=== PATIENT | female | born 1990 | race Caucasian/White ===

== ENCOUNTER 2021-07-25 13:35 | Emergency (ER) | payer OTHER, MEDICAID, SELFPAY ==
--- NOTE | ~2021-07-25 | MR_ITS ---
EXAMINATION: MR lumbar spine wo con DATE: 07/26/2021 08:33 INDICATION: Low back pain. Sagittal and a seizure. TECHNIQUE: Magnetic resonance imaging (MRI) of the lumbar spine was performed without intravenous con trast. Sequences included sagittal T2-weighted FSE, sagittal T2-weighted FS FSE, sagittal T1-weighted FSE, and axial T2-weighted FSE. COMPARISON: None FINDINGS: Minimal thoracolumbar dextrocurvature. Sagittal alignment is normal. Vertebral body heights are pedro l. Normal marrow signal. Moderate disc height loss at L4-L5. Mild to moderate disc height loss at L5 -S1 and mild disc height loss at L3-L4. The conus medullaris terminates at T12. There is normal signa l in the caudal spinal cord. Paravertebral soft tissues are unremarkable. The following disc levels a re specifically discussed: T12-L1: The disc does not extend beyond the endplate margin. There is mild right facet joint osteoart hritis. There is no neural foraminal stenosis. There is no central canal stenosis. L1-L2: The disc does not extend beyond the endplate margin. There is no facet joint osteoarthritis. T here is no neural foraminal stenosis. There is no central canal stenosis. L2-L3: The disc does not extend beyond the endplate margin. There is mild bilateral facet joint osteo arthritis. There is no neural foraminal stenosis. There is no central canal stenosis. L3-L4: Disc is mildly bulging with superimposed annular fissure and central disc extrusion with disc material extending up to 1.3 similar caudal to the level of the superior endplate of L4. There is mil d bilateral facet joint osteoarthritis. There is mild bilateral neural foraminal stenosis. There is s evere central canal stenosis. L4-L5: Disc is mildly bulging with superimposed annular fissure and smaller central disc extrusion. T here is mild right and minimal left facet joint osteoarthritis. There is mild bilateral neural forami nal stenosis. There is severe central canal stenosis. L5-S1: Small central disc protrusion. There is mild bilateral facet joint osteoarthritis. There is mi ld left neural foraminal stenosis. There is minimal central canal stenosis with mild narrowing of the lateral recesses, left greater than right. IMPRESSION: 1. Moderate lumbar spondylosis most notable for disc extrusions resulting in severe central canal bertin nosis at both L3-L4 and L4-L5. Reviewed, dictated and finalized at location A. [employer] IMPRESSION: 1. Moderate lumbar spondylosis most notable for disc extrusions resulting in se obey central canal stenosis at both L3-L4 and L4-L5.
[2021-07-25 13:39] VITALS: BP 149/99; PULSE 110; RESP 18; TEMP 36.8; O2SAT 100
[2021-07-25 16:04] VITALS: BP 151/106; PULSE 104; RESP 20; TEMP 36.8; O2SAT 100
[2021-07-25 16:59] LABS: Basophils Absolute Auto 0.1 K/mm3 (0.0-0.1); Basophils Percent Auto 0.4 % (0.2-1.2); Eosinophils Absolute Auto 0.2 K/mm3 (0-0.3); Eosinophils Percent Auto 1.1 % (0-4.4); Hematocrit 45.7 % (37.0-47.0); Hemoglobin 14.9 g/dL (12.0-15.0); Immature Granulocyte Absolute 0.08 K/mm3 (0.00-0.031); Immature Granulocyte Percent A 0.5 % (0-0.5); Lymphocytes Absolute Auto 3.32 K/mm3 (0.9-3.2); Lymphocytes Percent Auto 20.6 % (18.3-44.2); Mean Corpuscular HGB Conc 32.6 g/dl (32-36); Mean Corpuscular Volume 82.8 fl (80-100); Mean Platelet Volume 10.3 fl (7.4-10.4); Monocytes Absolute Auto 0.8 K/mm3 (0.1-0.6); Neutrophils Absolute Auto 11.6 K/mm3 (1.3-6.7); Neutrophils Percent Auto 72.4 % (45.5-73.1); Platelet Count Result 333 k/mm3 (150-375); Red Blood Count 5.52 M/mm3 (4.2-5.4); White Blood Count 16.1 K/mm3 (4.5-10.0)
[2021-07-25 17:11] LABS: Alanine Aminotransferase 18 U/L (4-35); Albumin Level 4.9 g/dL (3.5-5.1); Alkaline Phosphatase 65 U/L (38-126); Anion Gap 9 mmol/L (8-16); Aspartate Amino Transferase 25 U/L (14-36); Bilirubin,Total 0.6 mg/dL (0.2-1.3); Blood Urea Nitrogen 11 mg/dL (7-17); Carbon Dioxide 24 mmol/L (22-30); Chloride 104 mmol/L (98-107); Estimated CRCL calculation 181 ml/min; Estimated Glomerular Filt Rate > 60; Glucose 116 mg/dL (65-110); Lipase 58 U/L (23-300); Potassium 3.7 mmol/L (3.4-5.0); Sodium 137 mmol/L (137-145)
[2021-07-25] MEDS: ONDANSETRON INJ 4 MG/2 ML VIAL IV PUSH (17:16)
[2021-07-25] MEDS: SODIUM CHLORIDE 0.9% IV 1,000 ML 999 ML IV CONT (17:16)
[2021-07-25] MEDS: FAMOTIDINE 20 MG/2 ML VIAL IV PUSH (17:16)
--- NOTE | 2021-07-25 17:51 | ED.ABDPAIN ---
HPI - Abdominal Pain General Chief Complaint: Abdominal Pain <DIPTI Will Last Filed: 07/25/21 23:46> Stated Complaint: CONSTIPATION FOR WEEKS, LEG NUMBNESS <DIPTI Will Last Filed: 07/25/21 23:46> Time Seen by Provider: 07/25/21 16:27 <DIPTI Will Last Filed: 07/25/21 23:46> Source: patient <DIPTI Will Last Filed: 07/25/21 23:46> Mode of arrival: ambulatory <DIPTI Will Last Filed: 07/25/21 23:46> Limitations: no limitations <DIPTI Will Last Filed: 07/25/21 23:46> History of Present Illness HPI narrative: This is a 31-year-old female that presents to the emergency department for constipation. Reports she has been having trouble have a bowel movement for the last couple of weeks. She also has had worsening low back pain. Reports she has started to note anesthesia in her groin. She is feeling tingling in her legs. She also reports she has been having some fecal incontinence. No recent injuries or trauma. Reports she is currently . Has had a ultrasound at another ER when she was seen a couple of weeks ago that confirmed an intrauterine . She is unsure how far along she is. Denies fever, bladder incontinence, dysuria, pelvic cramping, or vaginal bleeding. <DIPTI Will Last Filed: 07/25/21 23:46> Related Data Home Medications: Home Medications Medication Instructions Recorded Confirmed duloxetine mg PO 07/25/21 07/25/21 omeprazole 07/25/21 paroxetine HCl mg PO 07/25/21 <DIPTI Will Last Filed: 07/25/21 23:46> Allergies/Adverse Reactions: Allergies Allergy/AdvReac Type Severity Reaction Status Date / Time No Known Allergies Allergy Mild Unverified 07/25/21 16:47 <DIPTI Will Last Filed: 07/25/21 23:46> Review of Systems Review of Systems: CONSTITUTIONAL: Denies fever GASTROINTESTINAL: Reports abdominal pain, nausea, vomiting GENITOURINARY: Denies dysuria MUSCULOSKELETAL: Reports back pain, joint pain, and myalgia. NEUROLOGIC: Reports numbness, and weakness. PSYCHIATRIC: Reports anxiety and depression. <Lorie Newman PA-C - Last Filed: 07/25/21 23:46> All systems reviewed & are unremarkable except as noted in HPI and below <Lorie Newman PA-C - Last Filed: 07/25/21 23:46> [facility] Past Medical History Medical History: Medical History (Updated 07/26/21 @ 11:33 by Ozzy Patricia MD) History of gastroesophageal reflux (GERD) History of IBS <Lorie Newman PA-C - Last Filed: 07/25/21 23:46> Social History Social History: Social History (Updated 07/25/21 @ 17:54 by Lorie Newman PA-C) Smoking status: Never smoker <Lorie Newman PA-C - Last Filed: 07/25/21 23:46> Exam Narrative: GENERAL: Well-appearing, well-nourished, and in no acute distress. HEAD: Normocephalic, atraumatic. EYES: EOMI. CHEST: Clear to auscultation. No respiratory distress. No wheezes rales or rhonchi HEART: Regular rate and rhythm. No murmur heard. Normal peripheral pulses. ABDOMEN: Soft, nontender, nondistended, normal active bowel sounds. BACK: No midline spinal tenderness EXTREMITIES: Normal range of motion. No edema. Strength equal in bilateral lower extremities (5/5). Normal patellar reflexes bilaterally SKIN: Warm, dry, no rash. NEURO: No focal deficits. Alert and oriented x3. PSYCH: Normal mood and affect RECTAL: Mildly reduced rectal tone. Fecal impaction noted <Lorie Newman PA-C - Last Filed: 07/25/21 23:46> Course Consultations Consultation #1: Spoke with Dr. Wang at [facility] with spine. Recommends getting an MRI as soon as possible. If this shows any concerning findings transfer at that time. Patient is not able to be transferred at this time due to being at capacity <Lorie Newman PA-C - Last Filed: 07/25/21 23:46> Date: 07/25/21 <Lorie Newman PA-C - Last Filed: 07/25/21 23:46> [facility]
[2021-07-25 19:53] LABS: Add Urine Microscopic? YES; Appearance Urine Clear (Clear); Bacteria Urine Trace /hpf; Bilirubin Urine Negative (Negative); Blood Urine Negative (Negative); Color Urine Yellow (Yellow); Glucose Urine UA Negative (Negative); Ketones Urine Trace mg/dL (Negative); Leukocyte Esterase Ur 2+ LEU/UL (Negative); Mucus Urine Rare /lpf; Nitrate Urine Negative (Negative); Protein Urine Negative (Negative); RBC Urine 0-2 /hpf (0-2); Specific Grav Ur 1.011 (1.001-1.035); Squamous Epithelial Cell Urine Few /hpf (Few); Urobilinogen Urine Negative mg/dL (<2.0)
[2021-07-25 23:01] VITALS: BP 135/64; PULSE 90; RESP 16; O2SAT 100
[2021-07-26 02:58] VITALS: BP 129/58; PULSE 90; RESP 18; O2SAT 100
[2021-07-26 06:13] VITALS: BP 130/75; PULSE 86; RESP 18; O2SAT 98
[2021-07-26 06:14] VITALS: BP 130/75
[2021-07-26 07:36] VITALS: BP 107/62; PULSE 102; RESP 16; O2SAT 100
[2021-07-26] MEDS: ACETAMINOPHEN 325 MG TABLET 650 MG PO (11:18)
[2021-07-26 11:45] VITALS: BP 130/75; PULSE 99; RESP 20; O2SAT 100
== END 2021-07-26 11:49 | disposition home or self-care (01) ==
PROVIDERS: Physician Assistant; Emergency Provider Emergency Medicine; PCP Physician Assistant
DX: O99.891 Other specified diseases and conditions complicating pregnancy (principal); M48.061 Spinal stenosis, lumbar region without neurogenic claudication; M54.42 Lumbago with sciatica, left side; M54.41 Lumbago with sciatica, right side; O99.611 Diseases of the digestive system complicating pregnancy, first trimester; K58.1 Irritable bowel syndrome with constipation; K21.9 Gastro-esophageal reflux disease without esophagitis; O23.11 Infections of bladder in pregnancy, first trimester; N30.00 Acute cystitis without hematuria; M47.816 Spondylosis without myelopathy or radiculopathy, lumbar region; Z3A.01 Less than 8 weeks gestation of pregnancy
CPT/HCPCS: 36415; 72148; 80053; 81001; 81025; 83690; 84702; 85025; 87077; 87086; 87088; 96365; 96367; 96375; 99284; A9270; J0131; J0696; J2405; J7030